=== PATIENT | male | born 1940 | race Caucasian/White ===

== ENCOUNTER 2018-01-31 13:20 | Observation (INO) | payer OTHER ==
[2018-01-31 16:55] LABS: ADD MAN DIFF? NO
[2018-01-31 17:00] LABS: ABNORMAL IP MESSAGE 1; BASOPHIL # 0.1 10^3/ul (0.0-0.1); EOSINOPHILS # 0.1 10^3/ul (0.0-0.5); EOSINOPHILS % 1.8 % (0.0-7.0); HEMATOCRIT 27.7 % (42.0-52.0); HEMOGLOBIN 8.9 g/dl (14.0-18.0); LYMPHOCYTES # 1.2 10^3/ul (0.8-2.9); LYMPHOCYTES % 22.9 % (15.0-51.0); MEAN CORPUSCULAR HEMOGLOBIN 34.1 pg (29.0-33.0); MEAN CORPUSCULAR HGB CONC 32.1 g/dl (32.0-37.0); MEAN CORPUSCULAR VOLUME 106.1 fl (82.0-101.0); MEAN PLATELET VOLUME 11.4 fl (7.4-10.4); MONOCYTE # 0.2 10^3/ul (0.3-0.9); MONOCYTES % 4.2 % (0.0-11.0); NEUTROPHIL # 3.4 10^3/ul (1.6-7.5); NEUTROPHILS % 68.3 % (39.0-77.0); NUCLEATED RED BLOOD CELLS% 0.6 /100WBC (0.0-0.0); PLATELET COUNT 94 10^3/UL (140-415); POSITIVE DIFF @See below; RED BLOOD COUNT 2.61 10^6/ul (4.70-6.10); RED CELL DISTRIBUTION WIDTH 21.4 % (11.5-14.5)
[2018-01-31 17:18] LABS: INR 2.02; PROTIME 23.3 Sec (11.9-14.9); PT RATIO 1.8
[2018-01-31 17:19] LABS: ANION GAP 8 (8-16); BLOOD UREA NITROGEN 16 mg/dl (7-20); CALCIUM 7.1 mg/dl (8.4-10.2); CARBON DIOXIDE 33 mmol/L (21-31); CHLORIDE 94 mmol/L (97-110); CREATININE 3.27 mg/dl (0.61-1.24); GLUCOSE 71 mg/dl (70-220); PARTIAL THROMBOPLASTIN TIME 51.9 Sec (25.0-35.0); POTASSIUM 3.5 mmol/L (3.5-5.1); SODIUM 131 mmol/L (135-144)
[2018-01-31] MEDS: SOD CHLORIDE 0.9% 500 ML IV (17:32)
[2018-01-31 17:37] LABS: TROPONIN-I < 0.010 ng/ml (0.000-0.120)
[2018-01-31] MEDS ORDERED: ACETAMINOPHEN 325 MG TAB PO ×2 (18:00)
[2018-01-31] MEDS ORDERED: HYDROCODONE/APAP (5/325) TAB PO (18:00)
[2018-01-31] MEDS ORDERED: ONDANSETRON 4 MG INJ IV ×2 (18:00)
[2018-01-31] MEDS ORDERED: NACL 0.9% 3 ML SYG IV (18:00)
[2018-01-31] MEDS ORDERED: DOCUSATE SODIUM 100 MG CAP PO (18:00)
[2018-01-31] MEDS ORDERED: morphine 2 MG INJ IV (18:00)
[2018-01-31] MEDS ORDERED: ZOLPIDEM 5 MG TAB PO (18:00)
[2018-01-31] MEDS ORDERED: MAGNESIUM HYDROXIDE 30ML CUP PO (18:00)
[2018-01-31 18:26] LABS: ANISOCYTOSIS 2+ (0-0); BAND NEUTROPHILS #M 0.3 10^3/ul (0.0-0.6); BAND NEUTROPHILS % (M) 7 % (0-4); EOSINOPHILS % (M) 2 % (0-7); ERYTHROBLAST% (NRBC) (M) 1 % (0-0); GIANT THROMBO% (M) 4 % (0-0); HYPOCHROMASIA 1+ (0-0); LYMPHOCYTES #M 1.3 10^3/ul (0.8-2.9); LYMPHOCYTES % (M) 26 % (15-51); MONOCYTE #M 0.1 10^3/ul (0.3-0.9); MONOCYTES % (M) 3 % (0-11); PLATELET ESTIMATE DECREASED; POLYCHROMASIA 3+ (0-0); SEG NEUT #M 3.1 10^3/ul (1.6-7.5); SEGMENTED NEUTROPHILS (M) % 62 % (39-77); SMUDGE%M 1 % (0-0)
[2018-01-31 19:06] LABS: ADD UMIC YES; UR ASCORBIC ACID NEGATIVE (NEGATIVE); UR BACTERIA FEW /HPF (NONE SEEN); UR BILIRUBIN (Dip) NEGATIVE (NEGATIVE); UR BLOOD (Dip) 1+ mg/dL (NEGATIVE); UR CLARITY SLIGHTLY CLOUDY (CLEAR); UR COLOR YELLOW (YELLOW); UR GLUCOSE (Dip) NEGATIVE (NEGATIVE); UR KETONES (Dip) NEGATIVE (NEGATIVE); UR LEUKOCYTE ESTERASE (Dip) 2+ Leu/ul (NEGATIVE); UR NITRITE (Dip) NEGATIVE (NEGATIVE); UR RBC 1 /HPF (0-5); UR SPECIFIC GRAVITY (Dip) 1.004 (1.003-1.030); UR TOTAL PROTEIN (Dip) NEGATIVE (NEGATIVE); UR UROBILINOGEN (Dip) NEGATIVE (NEGATIVE); UR WBC 14 /HPF (0-5)
[2018-01-31] MEDS ORDERED: NORTRIPTYLINE 50 MG CAP PO (21:00)
[2018-02-01] MEDS: NORTRIPTYLINE 25 MG CAP PO ×2 (04:01→20:21)
[2018-02-01] MEDS: PREGABALIN 75 MG CAP PO ×3 (04:02→20:21)
[2018-02-01] MEDS: MIDODRINE 5 MG TAB PO (08:51)
[2018-02-01 09:10] LABS: ADD MAN DIFF? NO
[2018-02-01 09:16] LABS: ABNORMAL IP MESSAGE 1; BASOPHIL # 0.1 10^3/ul (0.0-0.1); BASOPHILS % 2.3 % (0.0-2.0); EOSINOPHILS # 0.2 10^3/ul (0.0-0.5); EOSINOPHILS % 4.8 % (0.0-7.0); HEMATOCRIT 26.7 % (42.0-52.0); HEMOGLOBIN 8.7 g/dl (14.0-18.0); LYMPHOCYTES % 28.6 % (15.0-51.0); MEAN CORPUSCULAR HEMOGLOBIN 34.3 pg (29.0-33.0); MEAN CORPUSCULAR HGB CONC 32.6 g/dl (32.0-37.0); MEAN CORPUSCULAR VOLUME 105.1 fl (82.0-101.0); MEAN PLATELET VOLUME 12.1 fl (7.4-10.4); MONOCYTE # 0.2 10^3/ul (0.3-0.9); MONOCYTES % 6.2 % (0.0-11.0); NEUTROPHILS % 57.5 % (39.0-77.0); NUCLEATED RED BLOOD CELLS% 0.8 /100WBC (0.0-0.0); PLATELET COUNT 81 10^3/UL (140-415); POSITIVE DIFF @See below; RED BLOOD COUNT 2.54 10^6/ul (4.70-6.10); RED CELL DISTRIBUTION WIDTH 21.2 % (11.5-14.5)
[2018-02-01 09:16] LABS: WHITE BLOOD COUNT 3.5 10^3/ul (4.8-10.8)
[2018-02-01 09:35] LABS: ANION GAP 8 (8-16); BLOOD UREA NITROGEN 20 mg/dl (7-20); CALCIUM 6.8 mg/dl (8.4-10.2); CARBON DIOXIDE 30 mmol/L (21-31); CHLORIDE 97 mmol/L (97-110); CREATININE 3.85 mg/dl (0.61-1.24); GLUCOSE 67 mg/dl (70-220); MAGNESIUM 1.4 mg/dl (1.7-2.5); PHOSPHORUS 3.7 mg/dl (2.5-4.9); SODIUM 131 mmol/L (135-144)
[2018-02-01 10:13] LABS: HEMOGLOBIN A1C 4.7 % (0-5.9)
[2018-02-01] MEDS: MAGNESIUM SULFATE 4 GM/100 ML 100 ML IVPB (12:46)
[2018-02-01] MEDS ORDERED: morphine LIQ (10 MG/5 ML) CUP PO (16:30)
[2018-02-01] MEDS ORDERED: WARFARIN 2 MG TAB PO (17:00)
[2018-02-01] MEDS: ATORVASTATIN 10 MG TAB PO (20:21)
[2018-02-02] MEDS: LIDOCAINE 1% (MDV) 10 ML INJ INFIL (05:20)
[2018-02-02 06:09] LABS: ADD MAN DIFF? NO
[2018-02-02 06:25] LABS: WHITE BLOOD COUNT 2.9 10^3/ul (4.8-10.8)
[2018-02-02 06:25] LABS: ABNORMAL IP MESSAGE 1; BASOPHILS % 1.4 % (0.0-2.0); EOSINOPHILS # 0.1 10^3/ul (0.0-0.5); EOSINOPHILS % 3.8 % (0.0-7.0); HEMATOCRIT 26.1 % (42.0-52.0); HEMOGLOBIN 8.5 g/dl (14.0-18.0); LYMPHOCYTES # 0.8 10^3/ul (0.8-2.9); LYMPHOCYTES % 28.3 % (15.0-51.0); MEAN CORPUSCULAR HEMOGLOBIN 33.9 pg (29.0-33.0); MEAN CORPUSCULAR HGB CONC 32.6 g/dl (32.0-37.0); MEAN PLATELET VOLUME 12.1 fl (7.4-10.4); MONOCYTE # 0.1 10^3/ul (0.3-0.9); MONOCYTES % 3.4 % (0.0-11.0); NEUTROPHIL # 1.8 10^3/ul (1.6-7.5); NEUTROPHILS % 62.4 % (39.0-77.0); PLATELET COUNT 79 10^3/UL (140-415); POSITIVE DIFF @See below; RED BLOOD COUNT 2.51 10^6/ul (4.70-6.10); RED CELL DISTRIBUTION WIDTH 20.7 % (11.5-14.5)
[2018-02-02 06:28] LABS: ANION GAP 7 (8-16); BLOOD UREA NITROGEN 20 mg/dl (7-20); CALCIUM 6.9 mg/dl (8.4-10.2); CARBON DIOXIDE 30 mmol/L (21-31); CHLORIDE 99 mmol/L (97-110); GLUCOSE 99 mg/dl (70-220); MAGNESIUM 2.2 mg/dl (1.7-2.5); POTASSIUM 3.7 mmol/L (3.5-5.1); SODIUM 132 mmol/L (135-144)
[2018-02-02 06:57] LABS: HEPATITIS B SURFACE ANTIGEN NEGATIVE (NEGATIVE)
[2018-02-02] MEDS: PREGABALIN 75 MG CAP PO (08:33)
[2018-02-02] MEDS: MIDODRINE 5 MG TAB PO (08:33)
== END 2018-02-02 12:40 | disposition home or self-care (01) ==
LOC: E/R 13:20 → MS4 17:59
DX: I95.1 Orthostatic hypotension (principal); R55 Syncope and collapse; E11.22 Type 2 diabetes mellitus with diabetic chronic kidney disease; N18.6 End stage renal disease; Z99.2 Dependence on renal dialysis; R53.81 Other malaise; Z85.51 Personal history of malignant neoplasm of bladder
CPT/HCPCS: 36415; 70450; 70486; 71045; 72125; 73030; 80048; 81001; 82607; 82746; 83036; 83735; 84100; 84484; 85025; 85610; 85730; 87340; 90935; 93005; 93306; 93880; 99285-25; G0378